=== PATIENT | female | born 1950 | race Caucasian/White ===

== ENCOUNTER 2022-11-01 12:24 | Emergency (ER) | payer MEDICARE, OTHER ==
[~2022-11-01] VITALS: Ht 160 cm; Wt 57.6 kg
[~2022-11-01 12:24] MED LIST: ADULT LOW DOSE81 MG PO; CALCIO DEL MAR500 MG PO; FLAX OIL1000 MG PO; GLUCOPHAGE500 MG PO; OXYCODON-ACETA1 EAC2 PO; PRILOSEC40 MG PO; SYNTHROID88 MCG PO; ZOCOR40 MG PO
[2022-11-01] MEDS ORDERED: LISINOPRIL20 MG PO (12:33)
== END 2022-11-01 14:00 | disposition home or self-care (01) ==
LOC: ED 12:24
DX: S61.411A Laceration without foreign body of right hand, initial encounter (principal); Z23 Encounter for immunization; I10 Essential (primary) hypertension; Z87.891 Personal history of nicotine dependence; W26.8XXA Contact with other sharp object(s), not elsewhere classified, initial encounter; Z88.8 Allergy status to other drugs, medicaments and biological substances; Z88.5 Allergy status to narcotic agent; Z79.899 Other long term (current) drug therapy
CPT/HCPCS: 12042; 90471; 90715; 99282-25